=== PATIENT | male | born 1990 | race Caucasian/White ===

== ENCOUNTER 2017-03-06 10:38 | Emergency (ER) | payer OTHER ==
[~2017-03-06] VITALS: Ht 162.6 cm; Wt 59.0 kg
[2017-03-06 10:38] VITALS: BP 167/78
[~2017-03-06 10:38] MED LIST: /CELE20CA PO; ACET50TA PO; NAPR500T PO
[2017-03-06] MEDS ORDERED: VICO7.5T11 PO (10:53)
[2017-03-06] MEDS ORDERED: antibiotic (10:53)
[2017-03-06] MEDS ORDERED: PERC5TAB6 PO (11:41)
== END 2017-03-06 11:53 | disposition home or self-care (01) ==
LOC: M ED 11:33
DX: M25.512 Pain in left shoulder (principal); Z79.891 Long term (current) use of opiate analgesic

== ENCOUNTER → 2017-07-14 | Outpatient (CLI) | payer OTHER ==
[~2017-07-14] MED LIST changes: +PERC5TAB12 PO; +VICO7.5T11 PO; +antibiotic
--- NOTE | 2017-07-14 14:58 | REP ---
Chest x-ray: Two views. History: Q. bronchitis. . Comparison study: No comparison study. . Findings: The lungs are well inflated and free of infiltrate. The pleural angles are sharp. The heart size is normal. Pulmonary vasculature is not increased. No significant bony abnormality is seen. There are two orthopedic pins in the right shoulder. Impression: Negative chest x-ray. Signed by Reynaldo Cerna MD 07/14/2017 02:50 P
== END ==
LOC: M WUC 13:42
PROVIDERS: ATTEND Physician Assistant Medical
DX: Z02.5 Encounter for examination for participation in sport (principal); J20.9 Acute bronchitis, unspecified

== ENCOUNTER 2018-07-31 20:25 | Emergency (ER) | payer OTHER | END 2018-07-31 22:06 | disposition home or self-care (01) | LOC: M ED 20:25 | DX: S90.31XA Contusion of right foot, initial encounter (principal); W22.8XXA Striking against or struck by other objects, initial encounter; Y92.096 Garden or yard of other non-institutional residence as the place of occurrence of the external cause | CPT/HCPCS: 73630 ==

== ENCOUNTER 2018-10-19 17:35 | Emergency (ER) | payer OTHER ==
[2018-10-19] MEDS: FLUORESCEIN OPHTH 1 MG STRIP OS (18:00)
[2018-10-19] MEDS: TETRACAINE 0.5% OPHTH SOLN 4ML OS (18:00)
[2018-10-19] MEDS: ADACEL/BOOSTRIX VACCINE (DIPHTH/PERTUSS/ACELL/TETANUS)0.5ML SYR (90715) IM (18:45)
== END 2018-10-19 19:02 | disposition home or self-care (01) ==
LOC: M ED 17:35
DX: H11.32 Conjunctival hemorrhage, left eye (principal); S05.02XA Injury of conjunctiva and corneal abrasion without foreign body, left eye, initial encounter; W31.1XXA Contact with metalworking machines, initial encounter; Y92.89 Other specified places as the place of occurrence of the external cause; Y99.0 Civilian activity done for income or pay
CPT/HCPCS: 90715